=== PATIENT | female | born 1975 | race Caucasian/White ===

== ENCOUNTER 2022-08-01 20:08 | Emergency (ER) | payer MEDICAID ==
[~2022-08-01] VITALS: Ht 162.6 cm; Wt 72.7 kg
[~2022-08-01 20:08] MED LIST: BUSP15TA3 PO; CLON-418 PO
[2022-08-01 20:33] VITALS: BP 125/85
--- NOTE | 2022-08-01 20:54 | NUR ---
Patient refused lab work - just wants abx.
[2022-08-01] MEDS ORDERED: pantoprazole 40mg Tablet.DR PO STA (22:09)
[2022-08-01] MEDS ORDERED: ondansetron 4mg rapidly disintigrating tab PO ONE (22:10)
[2022-08-01] MEDS ORDERED: PANT-47 PO (22:14)
[2022-08-01] MEDS ORDERED: ONDA4TAB12 PO (22:14)
== END 2022-08-01 23:05 | disposition home or self-care (01) ==
LOC: ER 20:09
DX: K52.9 Noninfective gastroenteritis and colitis, unspecified (principal); F17.200 Nicotine dependence, unspecified, uncomplicated; F12.90 Cannabis use, unspecified, uncomplicated; F15.90 Other stimulant use, unspecified, uncomplicated; Z79.899 Other long term (current) drug therapy
CPT/HCPCS: 99283

== ENCOUNTER 2022-09-05 13:33 | Emergency (ER) | payer MEDICAID ==
[~2022-09-05] VITALS: Ht 162.6 cm; Wt 74.5 kg
[~2022-09-05 13:33] MED LIST changes: +ONDA4TAB12 PO; +PANT-47 PO
[2022-09-05 14:33] VITALS: BP 109/70
[2022-09-05] MEDS ORDERED: SULF1TAB49 PO (15:53)
[2022-09-05] MEDS ORDERED: bacitracin 15gm ointment TP ONE (15:55)
[2022-09-05] MEDS ORDERED: sulfamethoxazole/trimethoprim DS (800/160mg) tablet PO ONE (15:55)
== END 2022-09-05 16:25 | disposition home or self-care (01) ==
LOC: ER 13:34
DX: T81.49XA Infection following a procedure, other surgical site, initial encounter (principal); F12.10 Cannabis abuse, uncomplicated; F15.10 Other stimulant abuse, uncomplicated; K21.9 Gastro-esophageal reflux disease without esophagitis; Z79.899 Other long term (current) drug therapy; Z79.1 Long term (current) use of non-steroidal anti-inflammatories (NSAID); Z79.2 Long term (current) use of antibiotics
CPT/HCPCS: 99283

== ENCOUNTER 2024-10-08 08:08 | Emergency (ER) | payer MEDICAID ==
[~2024-10-08] VITALS: Ht 162.6 cm; Wt 78.5 kg
[~2024-10-08 08:08] MED LIST changes: +ONDA-243 PO; -ONDA4TAB12 PO
[2024-10-08 08:09] VITALS: BP 128/86; PULSE 89; RESP 16; TEMP 97.8; O2SAT 100
[2024-10-08] MEDS: dexamethasone sod phosphate 10mg/ml inj PO STA (08:59)
[2024-10-08] MEDS: triamcinolone acetonide 40mg/ml inj IM ONE (08:59)
== END 2024-10-08 09:15 | disposition home or self-care (01) ==
LOC: ER 08:09
DX: L23.7 Allergic contact dermatitis due to plants, except food (principal); F12.90 Cannabis use, unspecified, uncomplicated; F15.90 Other stimulant use, unspecified, uncomplicated; K21.9 Gastro-esophageal reflux disease without esophagitis; Z79.899 Other long term (current) drug therapy
CPT/HCPCS: 96372; 99283; J1100; J3301

== ENCOUNTER 2024-11-09 08:32 | Emergency (ER) | payer MEDICAID ==
[~2024-11-09] VITALS: Ht 162.6 cm; Wt 71.7 kg
[2024-11-09 08:33] VITALS: BP 162/93; PULSE 83; RESP 15; TEMP 97.2; O2SAT 99
== END 2024-11-09 09:59 | disposition home or self-care (01) ==
LOC: ER 08:33
DX: S96.811A Strain of other specified muscles and tendons at ankle and foot level, right foot, initial encounter (principal); K21.9 Gastro-esophageal reflux disease without esophagitis; F12.90 Cannabis use, unspecified, uncomplicated; F15.90 Other stimulant use, unspecified, uncomplicated; Z59.00 Homelessness unspecified; Z79.899 Other long term (current) drug therapy; W18.39XA Other fall on same level, initial encounter; Y93.89 Activity, other specified; Y92.89 Other specified places as the place of occurrence of the external cause; Y99.8 Other external cause status
CPT/HCPCS: 73630; 99283; L3260

== ENCOUNTER 2025-01-09 07:50 | Emergency (ER) | payer MEDICAID ==
[~2025-01-09] VITALS: Ht 162.6 cm; Wt 75.0 kg
[2025-01-09 07:55] VITALS: BP 119/85; PULSE 82; TEMP 98.8; O2SAT 99
[2025-01-09 08:41] VITALS: RESP 18
--- NOTE | 2025-01-09 08:45 | Physician Documentation ---
History of Present Illness ~ Chief Complaint: Vaginal Bleeding Stated Complaint: BLEEDING Time Seen by MD: 08:33 OK to notify your PCP?: Yes Primary Medical Doctor: None Mode of Arrival: POV [facility] 49-year-old female patient came to the emergency room because heavy menstruation that has been on and off for two months. She has not seen her primary care provider. She is plus one AB. She has a appointment with her primary care provider in two weeks. I told her that we do not do the Pap smear because she says she is concerned about cervical malignancy. I told her that past smear has to be done by her primary care provider or can get it done at [facility]. Patient does not endorse any pain, any weight loss, any palpitation, any shortness a breath and any chest pain. Medication Reconciliation Allergies: Coded Allergies: No Known Allergies (Unverified , 09/05/22) Scheduled Buspirone HCl (Buspirone HCl), 1 TAB PO Q12H Clonidine HCl (Clonidine HCl), 1 TAB PO HS Estradiol Valerate/Dienogest (Natazia 28 Tablet), 1 TAB PO DAILY Pantoprazole Sodium (PROTONIX tablet), 1 TAB PO DAILY Scheduled PRN ONDANSETRON ODT 4mg tablet (Ondansetron Odt), 1 TABLET PO Q6H PRN for nausea/vomiting Past Medical History Past Medical History: GERD, *INFECTIOUS DZ* Past Surgical History: no surgical history Alcohol Use: None Drug Use: marijuana, methamphetamine Lives In: Other Review of Systems ROS As stated above in the HPI, otherwise all systems are reviewed and negative. Physical Exam Vital Signs: Temperature: 98.8, Source: Temporal, Heart Rate: 82, Respiratory Rate: 16, BP: 119/85, Pulse Oximetry: 99, Weight: 75.000 Physical Exam Reviewed vital signs and they are well within normal range. Const: Not in acute cardiopulmonary distress Head: Atraumatic Eyes: Normal Conjunctiva ENT: Normal External Ears, Nose and Mouth. Moist mucous membrane Neck: Full range of motion. No meningismus Resp: Clear to auscultation bilaterally. Normal work of breathing Cardio: Regular rate and rhythm, no murmurs. Skin well perfused Abd: Soft, non-tender, non-distended. Normal bowel sounds. No rebound or guar ding Pelvic exam: I do not see any abnormal growth. Minimal liquid dog blood discharge noted. No active fresh bleeding. Skin: No petechiae or rashes. Warm and dry Back: No midline or flank tenderness Ext: No cyanosis, or edema Neuro: Awake and alert Psych: Normal Mood and Affect Progress Results/Orders Results/Orders Completed Orders - JOON CAPELLAN MD Cbc/Diff (01/09/25 08:47) PBNP (01/09/25 08:47) Vital Signs 01/09/25 01/09/25 07:55 08:41 Temp 98.8 Pulse 82 Resp 16 18 B/P (MAP) 119/85 Pulse Ox 99 Laboratory Tests Test 01/09/25 09:00 White Blood Count 6.1 Red Blood Count 4.47 Hemoglobin 13.5 Hematocrit 40.0 Mean Corpuscular Volume 89.4 Mean Corpuscular Hemoglobin 30.2 Mean Corpuscular Hemoglobin Concent 33.8 Red Cell Distribution Width 14.6 H Platelet Count 268 Mean Platelet Volume 7.7 Neutrophils (%) (Auto) 53.2 Lymphocytes (%) (Auto) 33.5 Monocytes (%) (Auto) 9.0 Eosinophils (%) (Auto) 3.6 Basophils (%) (Auto) 0.7 Neutrophils # (Auto) 3.3 Lymphocytes # (Auto) 2.1 Monocytes # (Auto) 0.5 Eosinophils # (Auto) 0.2 Basophils # (Auto) 0.0 CBC Comment Pro-B-Type Natriuretic Peptide < 30 Medical Decision Making Findings During the physical examination, the findings suggestive of acute life- threatening condition such as JVD, tracheal deviation, acidotic breathing, noisy stridorous breath sounds, pulses paradoxus, muffled heart sounds, unequal breath sounds, abdominal rigidity and rebound tenderness, focal neurological deficits, cool clammy skin, severe hypotension, severe tachycardia or bradycardia are absent. Patient is not in acute cardiopulmonary distress Pelvic examination is not revealing much. And there is no active acute bleed ing. I will probably give her BCP tablets and the patient is to see her primary care for Pap smear. Patient's CBC shows WBC 6.1 H&H 13.5 and 40 platelets 268. DISCLAIMER Inadvertent spelling and grammatical errors,inadvertent obstetric anaesthetist errors,syntax errors, grammatical errors, and spelling errors are likely due to EMR/dictation software use and do not reflect on the overall quality of patient care. Note that the electronic time recorded on this note does not necessarily reflect the actual time of the patient encounter. Departure Disposition: 01 HOME / SELF CARE / HOMELESS Impression: Primary Impression: Menorrhagia Additional Impression: Abnormal perimenopausal bleeding Condition: Stable Discharge Instructions: Menorrhagia Additional Instructions: Thank you for coming to our Emergency Department today. Please do follow up with your primary care provider as planned so that you can have pass smear done. Please ask your nurse or provider if you have questions about your care today and do not leave until all your questions have been answered. Please use any medications given as directed and follow-up with your doctor (or the doctor you were referred to) in the next 1-3 days. Your primary care doctor can help to coordinate outpatient specialty care and provide authorization for specialty referral as needed. If you do not have a primary care doctor you may follow up at a [facility]. You may also use motrin and tylenol as needed for fever and/or pain unless instructed otherwise by your provider or nurse. Indications for more urgent follow-up have been discussed, but you may return to the Emergency Department at ANY time for any worrisome or worsening symptoms. Referrals: NO PRIMARY CARE PROVIDER (PCP) Prescriptions Estradiol Valerate/Dienogest (Natazia 28 Tablet) 3-2-1(28) Tablet 1 TAB PO DAILY for 28 Days, #28 TAB 0 Refills Prov: JOON CAPELLAN MD 01/09/25 Education Educated: Patient Educated regarding: need for follow up Signature Scribe Signature: None Attestation: My dictation JOON CAPELLAN MD Jan 09, 2025 08:45
[2025-01-09 09:06] LABS: BASOPHILS % (AUTO) 0.7 % (0-1); EOSINOPHILS # (AUTO) 0.2 X10'3 (0-0.9); EOSINOPHILS % (AUTO) 3.6 % (0-6); HEMOGLOBIN 13.5 g/dl (12.0-16.0); LYMPHOCYTES # (AUTO) 2.1 X10'3 (1.1-4.8); LYMPHOCYTES % (AUTO) 33.5 % (21-51); MEAN CORPUSCULAR HEMOGLOBIN 30.2 PG (27.0-31.0); MEAN CORPUSCULAR HGB CONC 33.8 g/dL (33.0-36.5); MEAN CORPUSCULAR VOLUME 89.4 FL (78-98); MEAN PLATELET VOLUME 7.7 FL (7.4-10.4); MONOCYTES # (AUTO) 0.5 X10'3 (0-0.9); NEUTROPHILS # (AUTO) 3.3 X10'3 (1.8-7.7); NEUTROPHILS % (AUTO) 53.2 % (42-75); PLATELET COUNT 268 X10'3 (140-440); RED BLOOD COUNT 4.47 X10'6 (4.20-5.60); RED CELL DISTRIBUTION WIDTH 14.6 % (11.5-14.5); WHITE BLOOD COUNT 6.1 X10'3 (4.5-11.0)
[2025-01-09] MEDS ORDERED: ESTR-40 PO (11:08)
== END 2025-01-09 11:23 | disposition home or self-care (01) ==
LOC: ER 07:51
DX: N92.0 Excessive and frequent menstruation with regular cycle (principal); N92.4 Excessive bleeding in the premenopausal period; R06.02 Shortness of breath; F12.90 Cannabis use, unspecified, uncomplicated; F15.90 Other stimulant use, unspecified, uncomplicated
CPT/HCPCS: 36415; 83880; 85025; 99283